=== PATIENT | female | born 1970 ===

== ENCOUNTER 2017-03-27 10:33 | Outpatient (CLI) | payer OTHER ==
--- NOTE | 2017-03-27 13:08 | Mammography Report ---
Bilateral mammogram: No previous studies are available. CAD study utilized. Findings: Predominance adipose tissue bilaterally. Large ill-defined area of asymmetry outer right breast. 3 mm circumscribed focal asymmetry upper posterior left breast. Benign axillary nodes. No microcalcification. Impression: Large asymmetry outer posterior right breast. 3 mm circumscribed asymmetry posterior left breast. Recommend spot mag and if necessary sonographic examination.
== END 2017-03-27 10:34 | disposition home or self-care (01) ==
LOC: SPVWC 10:33
PROVIDERS: ATTEND Physician Assistant Medical
DX: Z12.31 Encounter for screening mammogram for malignant neoplasm of breast (principal)
CPT/HCPCS: 77067

== ENCOUNTER 2017-04-04 11:21 | Outpatient (CLI) | payer OTHER ==
--- NOTE | 2017-04-04 13:01 | Mammography Report ---
BILATERAL DIGITAL DIAGNOSTIC MAMMOGRAM : 04/04/17 11:21:00 CLINICAL: Recalled for bilateral asymmetries. COMPARISON:03/27/17 screening FINDINGS: Bilateral additional views were obtained and are negative. IMPRESSION: No mammographic evidence of malignancy. BI-RADS CATEGORY: 1 -- Negative RECOMMENDATION: Routine mammographic screening in one year. ACR BI-RADS MAMMOGRAPHIC CODES: 0 = Needs additional imaging evaluation; 1 = Negative; 2 = Benign; 3 = Probably benign; 4 = Suspicious; 5 = Malignant; 6 = Known biopsy-proven malignancy COMMENT: 1. Dense breast tissue, i.e., adenosis, fibrocystic changes, etc., may obscure an underlying neoplasm. 2. Approximately 10% of cancers are not detected with mammography. 3. A negative mammography report should not delay biopsy if a clinically suspicious mass is present. COMMENT: Patient follow-up letters are generated via our [employer] application.
== END 2017-04-04 11:22 | disposition home or self-care (01) ==
LOC: SPVWC 11:21
PROVIDERS: ATTEND Family Medicine
DX: R92.8 Other abnormal and inconclusive findings on diagnostic imaging of breast (principal)
CPT/HCPCS: 77066

== ENCOUNTER 2018-07-09 13:45 | Outpatient (CLI) | payer OTHER ==
--- NOTE | 2018-07-10 13:07 | Mammography Report ---
BILATERAL DIGITAL SCREENING MAMMOGRAM with CAD: 07/09/18 13:45:00 CLINICAL: Routine screening. COMPARISON: 03/27/17 FINDINGS: There are bilateral scattered areas of fibroglandular density.No mass, architectural distortion or suspicious calcifications. IMPRESSION: No mammographic evidence of malignancy. BI-RADS CATEGORY: 1 -- Negative RECOMMENDATION: Routine mammographic screening in one year. COMMENT: Patient follow-up letters are generated by our [employer] application.
== END 2018-07-09 13:46 | disposition home or self-care (01) ==
LOC: SPVWC 13:45
PROVIDERS: ATTEND Family Medicine
DX: Z12.31 Encounter for screening mammogram for malignant neoplasm of breast (principal)
CPT/HCPCS: 77067